=== PATIENT | male | born 1950 | race Caucasian/White ===

== ENCOUNTER → 2017-07-13 | Outpatient (CLI) | payer MEDICARE, BC ==
[~2017-07-13] MED LIST: ABILIFY10 MG PO; ACYCLOVIR 200200 MG PO; B12INJ PO; BENGAY GREASELE57 GM TOP; CLONAZEPAM 0.50.5 M1 PO; COUMADIN 3 MG TA3 M1 PO; CYMBALTA60 MG PO; DIFLUCAN150 MG PO; DILAUDID-H10 MG/1 M1 INJECTION; DOXYCYCLINE 10100 MG PO; ELIQUIS5 MG PO; FOLIC ACID 40400 MC1 PO; HYDROCODON-ACE1 EAC7 PO; HYDROCODONE-AP1 EA11 PO; IBUPROFEN 800800 M1 GT; LASIX 40 MG TAB40 M2 PO; LEVAQUIN 500 M500 MG PO; LEVETIRACETAM750 MG PO; LIPITOR 20 MG T20 M1 PO; LIPITOR40 MG PO; METHOCARBAMOL500 M1 PO; NITROGLYCERIN0.4 MG SUBLING; PERCOCET 10-321 EACH PO; PRAVACHOL40 MG PO; TOPROL XL25 MG PO; TRAZODONE 100100 MG PO; TRAZODONE HCL100 MG PO; TRILEPTAL150 MG; VITAMIN D3400 UNIT PO; VITAMIN E400 UNIT PO; ZINC30 MG PO; ZONEGRAN100 MG PO
[2017-07-13 09:39] LABS: ABSOLUTE BASOPHILS 0.1 thou/uL (0.0-0.2); ABSOLUTE EOSINOPHILS 0.3 thou/uL (0.0-0.7); ABSOLUTE LYMPHOCYTES 3.1 thou/uL (0.8-5.3); ABSOLUTE MONOCYTES 1.1 thou/uL (0.0-1.2); ABSOLUTE NEUTROPHILS 4.6 thou/uL (1.6-8.1); BASOPHILS 0.9 %; EOSINOPHILS 3.5 %; HEMATOCRIT 41.2 % (42.0-52.0); HEMOGLOBIN 13.9 gm/dL (14.0-18.0); LYMPHOCYTES 33.8 %; MCH 31.6 pg (26.0-34.0); MCHC 33.8 g/dL (28.0-37.0); MCV 93.4 fL (80.0-100.0); MPV 7.9 fl. (7.2-11.1); NUCLEATED RBCS 0 /100WBC; PLATELET COUNT* 229 thou/uL (150-400); POLYS 49.8 %; RBC 4.41 mil/uL (4.50-6.00); RDW-CV 12.7 % (10.5-14.5); WBC 9.2 thou/uL (4.0-11.0)
[2017-07-13 09:55] LABS: ALBUMIN 3.3 g/dL (3.4-5.0); CALCIUM 9.2 mg/dL (8.5-10.1); CREATININE 1.1 mg/dL (0.6-1.3); POTASSIUM 4.2 mmol/L (3.5-5.1); TOTAL BILIRUBIN 0.2 mg/dL (<0.1-1.0); TOTAL PROTEIN 7.2 g/dL (6.4-8.2)
== END ==
LOC: M.LAB 09:06
PROVIDERS: Internal Medicine Cardiovascular Disease
DX: Z51.81 Encounter for therapeutic drug level monitoring (principal); Z79.899 Other long term (current) drug therapy

== ENCOUNTER 2017-08-09 11:12 | Observation (INO) | payer MEDICARE, BC ==
[~2017-08-09] VITALS: Ht 180.3 cm; Wt 111.1 kg
[~2017-08-09 11:12] MED LIST changes: -BENGAY GREASELE57 GM TOP; -HYDROCODON-ACE1 EAC7 PO; -LASIX 40 MG TAB40 M2 PO; -LIPITOR40 MG PO; -VITAMIN D3400 UNIT PO; -ZINC30 MG PO
[2017-08-09 11:27] VITALS: BP 146/70
[2017-08-09] MEDS ORDERED: LASIX 40 MG TAB40 M2 PO (11:31)
[2017-08-09] MEDS ORDERED: VITAMIN D3400 UNIT PO (11:31)
[2017-08-09 11:34] LABS: ABSOLUTE BASOPHILS 0.1 thou/uL (0.0-0.2); ABSOLUTE EOSINOPHILS 0.2 thou/uL (0.0-0.7); ABSOLUTE LYMPHOCYTES 3.4 thou/uL (0.8-5.3); ABSOLUTE MONOCYTES 1.2 thou/uL (0.0-1.2); ABSOLUTE NEUTROPHILS 4.5 thou/uL (1.6-8.1); BASOPHILS 1.1 %; HEMATOCRIT 40.2 % (42.0-52.0); HEMOGLOBIN 13.1 gm/dL (14.0-18.0); LYMPHOCYTES 36.1 %; MCH 30.5 pg (26.0-34.0); MCHC 32.7 g/dL (28.0-37.0); MCV 93.5 fL (80.0-100.0); MONOCYTES 12.5 %; MPV 8.3 fl. (7.2-11.1); NUCLEATED RBCS 0 /100WBC; PLATELET COUNT* 278 thou/uL (150-400); POLYS 48.3 %; RDW-CV 12.9 % (10.5-14.5); WBC 9.4 thou/uL (4.0-11.0)
[2017-08-09 11:52] LABS: ANION GAP 7 mmol/L (7-16); BUN 21 mg/dL (7-18); CALCIUM 8.7 mg/dL (8.5-10.1); CHLORIDE 104 mmol/L (98-107); CO2 28 mmol/L (21-32); CREATININE 0.8 mg/dL (0.6-1.3); GLUCOSE 95 mg/dL (70-99); SODIUM 139 mmol/L (136-145)
[2017-08-09 12:03] LABS: ALBUMIN 3.5 g/dL (3.4-5.0); ALKALINE PHOSPHATASE 127 U/L (46-116); LIPASE 197 U/L (73-393); MAGNESIUM 2.2 mg/dL (1.8-2.4); NT-PRO BRAIN NAT PEPTIDE 66 pg/mL (<300); SGOT 33 U/L (15-37); SGPT 14 U/L (30-65); TOTAL BILIRUBIN 0.3 mg/dL (<0.1-1.0); TOTAL PROTEIN 7.7 g/dL (6.4-8.2); TROPONIN-I LEVEL <0.06 ng/mL (<0.06)
[2017-08-09 14:46] VITALS: BP 112/66
[2017-08-09 14:57] VITALS: BP 127/75
--- NOTE | 2017-08-09 15:10 | EKG ---
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: [facility] : 1950 Requested By: Kenneth Mathew Order Number: [id number] MD: Collin Mooney Measurements Intervals [place] Rate: 57 P: 23 UT: 206 QRS: -24 QRSD: 143 T: 29 QT: 458 QTc: 446 Interpretive Statements Sinus bradycardia Right bundle branch block Compared to ECG 11/06/2016 14:38:52 no change Electronically Signed On 08-09-2017 15:10:16 CDT by Collin Mooney [email or web address] <ELECTRONICALLY SIGNED> By: Collin Mooney MD, [facility] 08/09/17 1510 1116 111 Collin Mooney MD, [facility] /EPI
[2017-08-09 16:00] VITALS: BP 98/60
[2017-08-09 20:00] VITALS: BP 103/61
[2017-08-10] VITALS: BP 114/59
[2017-08-10 03:45] VITALS: BP 120/67
[2017-08-10 08:00] VITALS: BP 118/62
[2017-08-10 08:35] VITALS: BP 120/67
[2017-08-10] MEDS ORDERED: LIPITOR40 MG PO (11:36)
[2017-08-10 11:44] VITALS: BP 122/82
[2017-08-10] MEDS ORDERED: BENGAY GREASELE57 GM TOP (12:10)
[2017-08-10 12:12] VITALS: BP 120/67
--- NOTE | 2017-08-11 12:51 | CON ---
[address] [address] CONSULTATION Name: NINA MONTANO Room: [address] Brady Coffman#: [id number] Admission: 08/09/17 Attend Phys: Jacy Muñiz Discharge: 08/10/17 Date of : 52 Report #: [id number] THIS REPORT FOR: //name// CC: Willie Pemberton DATE OF SERVICE: 08/09/2017 HISTORY OF PRESENT ILLNESS: The patient is a 66-year-old white male who I was asked to see in the Emergency Room today after he complained of chest pain. The patient has a history of palpitations. He actually saw my partner, Dr. Jos Escalante and wore an event recorder back in August 2015. This showed episodes of atrial fibrillation. The patient was started on Eliquis for anticoagulation. He has had occasional chest pain in the past and had an abnormal nuclear stress test. Dr. Escalante performed a heart catheterization in October 2015 from the right radial artery. This showed no significant disease in the left main artery. There was a marginal branch of 30% stenosis. The distal LAD had a 60% apical stenosis. The diagonal branch had a 50% stenosis. The right coronary artery had a 50% stenosis in the posterior descending branch. Ejection fraction 55%. It was recommended that he be treated medically. He was actually seen by Dr. Escalante's nurse practitioner, Lani Henson on 07/30/2017. The patient was given Lasix for shortness of breath. He did have some orthostasis and was given midodrine. The patient did undergo a nuclear stress test last month in June. This showed a sinus rhythm. Stress test was performed with Lexiscan. Ejection fraction 68%. There were no perfusion defects. The patient stays fairly active. Yesterday, he had heaviness in his chest, lasted most of the day. He went to bed last night. When he awakened, he still felt the heaviness in his chest. There was no radiation of the pain; however, he has been short of breath, but denied any cough, fever or edema. The heaviness of chest did not radiate and was not related to food. He has had no bleeding. It seemed to be worse with activity. He denied any palpitations or syncope. He came to the Emergency Room and was admitted. PAST MEDICAL HISTORY: Significant for 5 back surgeries, elbow surgery, rotator cuff surgery, cholecystectomy, tonsillectomy. He has a history of keloid formation after surgical incisions. He has a history of hyperlipidemia. MEDICATIONS: Consists of Cymbalta for depression, Eliquis twice a day, Lasix for the edema and trazodone as needed. ALLERGIES: He has no known drug allergies. FAMILY HISTORY: [place] [address] CONSULTATION Name: NINA MONTANO Room: [address] [place] Coffman#: [id number] Admission: 08/09/17 Attend Phys: Jacy Muñiz Discharge: 08/10/17 Date of : 52 Report #: [id number] SOCIAL HISTORY: He is . He and his live in [place]. 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 REVIEW OF SYSTEMS: He has had no history of stroke. He did have a sleep study in the past consistent with sleep apnea. He has no history of asthma, peptic ulcer disease, liver disease, although he has had elevated liver function studies in the past and had liver biopsies negative at [facility]. No history of kidney disease or cancer. He has a history of depression, saw a psychiatrist. He has had ECT at [facility] in the past. He still sees a psychiatrist. PHYSICAL EXAMINATION: GENERAL: Revealed an elderly male who appeared in no distress. VITAL SIGNS: He had a blood pressure of 140/70, pulse is 60. He is afebrile. HEENT: He is anicteric, conjunctivae pink. Mucous membranes moist. NECK: Neck veins nondistended. No carotid bruits. Neck supple. CHEST: Clear to auscultation. CARDIOVASCULAR: Regular rate and rhythm without rub. ABDOMEN: Obese, soft, nontender. EXTREMITIES: Had no edema. Posterior pulse 3+ bilaterally. SKIN: Warm, dry. NEUROLOGIC: Nonfocal. RADIOLOGICAL DATA: His ECG showed sinus bradycardia. There was a right bundle branch block and compared to ECG in the past, there was no significant change. His additional workup included lab work that showed sodium 139, creatinine 0.8, glucose 95. Liver function studies were normal. Troponin 0.06. TSH 3.1 last month. His white blood cell count 9.4, hemoglobin 13.1. IMPRESSION AND RECOMMENDATIONS: 1. Chest tightness. Atypical for angina since it lasted all day long with no troponin rise. No EKG changes. Nuclear stress test last month showed no ischemia. I would not recommend cardiac catheterization nor repeat stress testing at this time. I suspect his chest tightness is noncardiac. 2. Left hand numbness. Suspect neuropathy. 3. Hyperlipidemia. The patient is not on a statin drug at this time. 4. History of depression. 5. History of atrial fibrillation. No clinical recurrences. The patient is [facility] [address] [place] [address] CONSULTATION Name: NINA MONTANO Room: [address] Brady Coffman#: [id number] Admission: 08/09/17 Attend Phys: Jacy Muñiz Discharge: 08/10/17 Date of : 52 Report #: [id number] anticoagulated with Eliquis. 6. History of keloid formation. <ELECTRONICALLY SIGNED> By: Collin Mooney MD, FACC 08/11/17 1251 1305 0021Dedu Mooney MD, FACC /nt
== END 2017-08-10 13:50 | disposition home or self-care (01) ==
LOC: M.ERS 11:12 → M.2W 13:47 → M.TBA-ER 13:47 → M.2W 14:55
PROVIDERS: Emergency Medicine Emergency Medical Services; ADMIT Internal Medicine
DX: I25.10 Atherosclerotic heart disease of native coronary artery without angina pectoris (principal); I48.0 Paroxysmal atrial fibrillation; M94.0 Chondrocostal junction syndrome [Tietze]; I10 Essential (primary) hypertension; E78.5 Hyperlipidemia, unspecified; F32.9 Major depressive disorder, single episode, unspecified; G47.30 Sleep apnea, unspecified; R20.0 Anesthesia of skin; Z98.890 Other specified postprocedural states; R42 Dizziness and giddiness

== ENCOUNTER 2017-09-16 04:52 | Observation (INO) | payer MEDICARE, BC ==
[~2017-09-16] VITALS: Ht 180.3 cm; Wt 111.1 kg
--- NOTE | ~2017-09-16 | PROC ---
[address] [address] PROCEDURE REPORT Name: NINA MONTANO Room: [address] IN .R.#: [id number] Admission: 09/16/17 Attend Phys: Cris Shukla MD Discharge: Date of : 52 Report #: [id number] THIS REPORT FOR: //name// For GI report, please see the Provation report in Perceptive 7 content. By: 0701Medical Records Staff DENISHA /ZORAIDA
[~2017-09-16 04:52] MED LIST changes: +BENGAY GREASELE57 GM TOP; +LASIX 40 MG TAB40 M2 PO; +LIPITOR40 MG PO; +VITAMIN D3400 UNIT PO
[2017-09-16 05:09] VITALS: BP 161/90
[2017-09-16 05:22] LABS: URINE BILIRUBIN NEGATIVE (Negative); URINE BLOOD NEGATIVE (Negative); URINE CLARITY CLEAR; URINE COLOR YELLOW; URINE GLUCOSE-RANDOM NEGATIVE (Negative); URINE KETONES NEGATIVE (Negative); URINE LEUKOCYTES-REFLEX NEGATIVE (Negative); URINE NITRITE-REFLEX NEGATIVE (Negative); URINE PROTEIN NEGATIVE (Negative); URINE SPECIFIC GRAVITY 1.015 (1.005-1.030); URINE UROBILINOGEN 0.2 E.U./dl (0.2-1.0)
[2017-09-16 05:26] LABS: ABSOLUTE BASOPHILS 0.1 thou/uL (0.0-0.2); ABSOLUTE EOSINOPHILS 0.3 thou/uL (0.0-0.7); ABSOLUTE LYMPHOCYTES 4.8 thou/uL (0.8-5.3); ABSOLUTE MONOCYTES 1.3 thou/uL (0.0-1.2); ABSOLUTE NEUTROPHILS 8.2 thou/uL (1.6-8.1); BASOPHILS 0.4 %; EOSINOPHILS 1.9 %; HEMATOCRIT 44.2 % (42.0-52.0); HEMOGLOBIN 14.4 gm/dL (14.0-18.0); LYMPHOCYTES 32.9 %; MCH 29.5 pg (26.0-34.0); MCHC 32.6 g/dL (28.0-37.0); MCV 90.5 fL (80.0-100.0); MONOCYTES 8.9 %; NUCLEATED RBCS 0 /100WBC; PLATELET COUNT* 272 thou/uL (150-400); POLYS 55.9 %; RBC 4.89 mil/uL (4.50-6.00); RDW-CV 13.1 % (10.5-14.5); WBC 14.7 thou/uL (4.0-11.0)
[2017-09-16 05:29] LABS: CALCIUM 9.5 mg/dL (8.5-10.1); POTASSIUM 4.1 mmol/L (3.5-5.1)
[2017-09-16 05:33] LABS: ALBUMIN 3.5 g/dL (3.4-5.0); TOTAL BILIRUBIN 0.2 mg/dL (<0.1-1.0)
[2017-09-16 09:00] VITALS: BP 136/82
[2017-09-16 09:18] VITALS: BP 153/75
[2017-09-16] MEDS ORDERED: ZINC30 MG PO (11:17)
[2017-09-16 15:36] VITALS: BP 153/75
[2017-09-16 23:35] VITALS: BP 111/70
[2017-09-17] MEDS ORDERED: HYDROCODON-ACE1 EAC7 PO (07:41)
[2017-09-17 08:12] VITALS: BP 109/68
[2017-09-17 16:01] VITALS: BP 109/68
[2017-09-17 16:42] VITALS: BP 109/68
--- NOTE | 2017-09-22 16:41 | CON ---
[address] [address] CONSULTATION Name: NINA MONTANO Room: [address] Brady Coffman#: [id number] Admission: 09/16/17 Attend Phys: Cris Shukla MD Discharge: 09/17/17 Date of : 52 Report #: [id number] THIS REPORT FOR: //name// CC: Cris Tapia DATE OF SERVICE: 09/16/2017 REASON FOR CONSULT: Abnormal CT and epigastric pain. HISTORY OF PRESENT ILLNESS: This is a 66-year-old male with history of chronic pain, who is on pain pump. He presented to hospital with epigastric pain. He also reports symptoms of nausea, vomiting and blood in the stool. The patient reports that he is usually constipated and due to his chronic back pain, he has anal sphincter dysfunction and therefore he has to digitally disimpact himself on daily basis. PAST MEDICAL HISTORY: Significant for history of chronic back pain status post back surgery, elbow and shoulder surgery, history of torn meniscus, gallbladder disease status post cholecystectomy, history of AFib, sleep apnea, insomnia, history of chronic pain receiving pain meds through a pump. ALLERGIES: No known drug allergy. MEDICATIONS: Please refer to hospital MAR. SOCIAL HISTORY: The patient is . Denies tobacco or alcohol use. He is on chronic pain meds with the pain pump. FAMILY HISTORY: Noncontributory. PHYSICAL EXAMINATION: VITAL SIGNS: Reveals blood pressure of 153/75, respirations 18, pulse 63, temperature 98.5. LUNGS: Clear. CARDIOVASCULAR: Regular rate, but irregular rhythm. ABDOMEN: Soft, tender to palpation in the epigastric region. Bowel sounds are positive. NEUROLOGIC: The patient is alert, oriented times 3. LABORATORY DATA: Reveal sodium of 138, potassium 4.1, BUN is 23, creatinine 1.0, glucose 109. Liver function tests are all within normal limits with mild elevation of alkaline phosphatase of 154. INR is 1.1. WBC is 14.7 with hemoglobin of 14.4 and platelet of 272. IMAGING: CT of abdomen and pelvis was obtained on admission. [place] [address] CONSULTATION Name: DUSTYNINA Room: [address] Brady Coffman#: [id number] Admission: 09/16/17 Attend Phys: Cris Shukla MD Discharge: 09/17/17 Date of : 52 Report #: [id number] significant for fluid distention of the stomach with mild fluid distention of the distal small bowel. ASSESSMENT AND PLAN: The patient with epigastric pain and fluid distention of the stomach and small bowel. This may be due to gastroparesis, in combination to severe constipation due to sphincter dysfunction. I will perform an upper endoscopy to rule out gastroduodenal ulcers versus gastric outlet obstruction and evaluate the patient for gastroesophageal reflux disease. If the upper scope is normal, we will consider a gastric emptying test. We will also help the patient with his chronic constipation. Looking at the records, I had performed the colonoscopy on him 9 years ago. We may consider colonoscopy at some point. <ELECTRONICALLY SIGNED> By: Javier Magallanes MD 09/22/17 1641 1626 1841Javier Magallanes MD /nt
--- NOTE | 2017-11-12 07:46 | PATH ---
[address] [address] PATHOLOGY RPT PROCEDURE Name: CHRIS MONTANO Room: [address] Brady Coffman#: [id number] Admission: 09/16/17 Date of : 52 Discharge: 09/17/17 Report #: [id number] Case #: [id number] [facility] Accession Number: [id number] . 01 Material submitted: . DUODENAL BIOPSY . 01 Clinical history: . None provided . 02 Diagnosis: Duodenal biopsy: - Nonspecific moderate active duodenitis, negative for granulomas and dysplasia. (MERE:[facility] 09/17/2017) QTP/09/17/2017 . 02 Electronically signed: . Derrek Garcia MD, Pathologist NPI- [id number] . 01 Gross description: . Received in formalin labeled "Chris Montaon duodenal BX," are 3 segments of mccain soft tissue measuring 0.8 x 0.5 x 0.3 cm in aggregate dimensions and ranging from 0.2 to 0.4 cm in maximum dimension. The specimen is submitted entirely in cassette A1. (TSD; 09/16/2017) TOB/TOB . 02 Pathologist provided ICD-10: K29.80 . 02 CPT . 873966 Specimen Comment: A courtesy copy of this report has been sent to Specimen Comment: [phone]. Specimen Comment: A duplicate report has been generated due to demographic updates. Performed at: [address], [place] [id number] MD Jaison Martinez MD Phone: [phone] Performed at: [address] [facility] [address], [place], [place] [id number] MD Derrek Garcia MD Phone: [phone]
== END 2017-09-17 16:46 | disposition home or self-care (01) ==
LOC: M.ERS 04:52 → M.ORTHSURG 08:16 → M.TBA-ER 08:16 → M.ORTHSURG 09:08
PROVIDERS: Emergency Medicine; ADMIT Internal Medicine
DX: K44.9 Diaphragmatic hernia without obstruction or gangrene (principal); K31.89 Other diseases of stomach and duodenum; K29.80 Duodenitis without bleeding; K31.84 Gastroparesis; K59.09 Other constipation; G89.29 Other chronic pain; M54.9 Dorsalgia, unspecified; I48.91 Unspecified atrial fibrillation; E78.5 Hyperlipidemia, unspecified; Z90.49 Acquired absence of other specified parts of digestive tract; Z98.890 Other specified postprocedural states

== ENCOUNTER → 2017-12-30 | Outpatient (CLI) | payer MEDICARE, BC ==
[~2017-12-30] MED LIST changes: +HYDROCODON-ACE1 EAC7 PO; +ZINC30 MG PO
[2017-12-30 10:55] LABS: ABSOLUTE BASOPHILS 0.1 thou/uL (0.0-0.2); ABSOLUTE EOSINOPHILS 0.3 thou/uL (0.0-0.7); ABSOLUTE LYMPHOCYTES 2.9 thou/uL (0.8-5.3); ABSOLUTE NEUTROPHILS 3.2 thou/uL (1.6-8.1); BASOPHILS 1.1 %; EOSINOPHILS 3.9 %; HEMATOCRIT 39.1 % (42.0-52.0); HEMOGLOBIN 12.8 gm/dL (14.0-18.0); LYMPHOCYTES 38.9 %; MCH 29.1 pg (26.0-34.0); MCHC 32.7 g/dL (28.0-37.0); MCV 89.2 fL (80.0-100.0); MONOCYTES 13.2 %; MPV 8.1 fl. (7.2-11.1); NUCLEATED RBCS 0 /100WBC; PLATELET COUNT* 241 thou/uL (150-400); POLYS 42.9 %; RBC 4.38 mil/uL (4.50-6.00); RDW-CV 14.8 % (10.5-14.5); WBC 7.5 thou/uL (4.0-11.0)
[2017-12-30 11:16] LABS: ALBUMIN 3.3 g/dL (3.4-5.0); ALKALINE PHOSPHATASE 140 U/L (46-116); ANION GAP 3 mmol/L (7-16); BUN 16 mg/dL (7-18); CALCIUM 8.6 mg/dL (8.5-10.1); CHLORIDE 105 mmol/L (98-107); CHOLESTEROL 202 mg/dL (<200); CO2 30 mmol/L (21-32); GLUCOSE 91 mg/dL (70-99); HDL CHOLESTEROL 41 mg/dL (>40); LDL CHOLESTEROL 136 mg/dL (<100); POTASSIUM 4.2 mmol/L (3.5-5.1); SGOT 27 U/L (15-37); SGPT 16 U/L (30-65); SODIUM 138 mmol/L (136-145); TC:HDL 4.9 Ratio (Not establshd); TOTAL BILIRUBIN 0.1 mg/dL (<0.1-1.0); TRIGLYCERIDE 129 mg/dL (<150); VLDL 26 mg/dL (<40)
[2017-12-30 11:22] LABS: SERUM ASSESSMENT Clear
== END ==
LOC: M.LAB 10:25
PROVIDERS: Nurse Practitioner Family
DX: Z13.220 Encounter for screening for lipoid disorders (principal); R06.02 Shortness of breath; R53.83 Other fatigue; E66.9 Obesity, unspecified

== ENCOUNTER → 2018-01-25 | Outpatient (CLI) | payer MEDICARE, BC ==
--- NOTE | 2018-01-25 15:08 | 2DMMODE ---
[place] [address] 2 D/M-MODE ECHOCARDIOGRAM Name: NINA MONTANO Room: [facility]#: [id number] Admission: 01/25/18 Attend Phys: IZABELLA Crooks Discharge: Date of : 52 Date of Service: 01/25/18 1507 Report #: [id number] THIS REPORT FOR: //name// APPROVED REPORT Study performed: 01/25/2018 13:50:20 EXAM: Comprehensive 2D, Doppler, and color-flow Echocardiogram Patient Location: Out-Patient Status: routine BSA: 2.38 HR: 70 bpm BP: 115/80 mmHg Other Information Study Quality: Good Indications Dyspnea 2D Dimensions IVSd: 12.32 (7-11mm) LVOT Diam: 20.72 (18-24mm) LVDd: 50.99 mm PWd: 11.33 (7-11mm) Ascending Ao: 26.90 (22-36mm) LVDs: 26.03 (25-40mm) Aortic Root: 31.90 mm Volumes Left Atrial Volume (Systole) LA ESV Index: 19.10 mL/m2 Aortic Valve AoV Peak Chang.: 1.45 m/s AO Peak Gr.: 8.46 mmHg LVOT Max P.51 mmHg AO Mean Gr.: 4.10 mmHg LVOT Mean P.97 mmHg LVOT Max V: 1.28 m/s AO V2 VTI: 29.19 cm LVOT Mean V: 0.79 m/s ANALISA (VTI): 3.12 cm2 LVOT V1 VTI: 27.01 cm Mitral Valve E/A Ratio: 1.01 MV Decel. Time: 248.63 ms MV E Max Chang.: 0.78 m/s MV PHT: 72.10 [place] [address] 2 D/M-MODE ECHOCARDIOGRAM Name: NINA MONTANO Room: [facility]#: [id number] Admission: 01/25/18 Attend Phys: IZABELLA Crooks Discharge: Date of : 52 Date of Service: 01/25/18 1507 Report #: [id number] MVA (PHT): 3.05 cm2 TDI E/Lateral E': 6.00 E/Medial E': 8.67 Medial E' Chang.: 0.09 m/s Lateral E' Chang.: 0.13 m/s Pulmonary Valve PV Peak Chang.: 1.20 m/s PV Peak Gr.: 5.77 mmHg Tricuspid Valve RAP Estimate: 5.00 mmHg TR Peak Gr.: 25.60 mmHg RVSP: 30.60 mmHg PA Pressure: 30.60 mmHg Left Ventricle The left ventricle is normal size. There is normal LV segmental wall motion. There is normal left ventricular wall thickness. Left ventricular systolic function is normal. LVEF is 55-60%. Transmitral Doppler flow pattern suggests impaired LV relaxation. Right Ventricle The right ventricle is normal size. The right ventricular systolic function is normal. Atria The left atrium size is normal. The right atrium size is normal. Aortic Valve The Aortic valve is sclerotic. No aortic regurgitation is present. There is no aortic valvular stenosis. Mitral Valve The mitral valve is normal in structure. Mild mitral regurgitation. No evidence of mitral valve stenosis. Tricuspid Valve The tricuspid valve is normal in structure. Mild tricuspid regurgitation. No pulmonary hypertension. Pulmonic Valve The pulmonary valve is normal in structure. There is no pulmonic valvular regurgitation[place] [address] 2 D/M-MODE ECHOCARDIOGRAM Name: NINA MONTANO Room: [facility]#: [id number] Admission: 01/25/18 Attend Phys: IZABELLA Crooks Discharge: Date of : 52 Date of Service: 01/25/18 1507 Report #: [id number] The aortic root is normal in size. IVC is normal in size and collapses >50% with inspiration. Pericardium There is no pericardial effusion. <Conclusion> The left ventricle is normal size. There is normal left ventricular wall thickness. Left ventricular systolic function is normal. LVEF is 55-60%. Transmitral Doppler flow pattern suggests impaired LV relaxation. The Aortic valve is sclerotic. There is no aortic valvular stenosis. Mild mitral regurgitation. Mild tricuspid regurgitation. No pulmonary hypertension. IVC is normal in size and collapses >50% with inspiration. <ELECTRONICALLY SIGNED> By: Luis Diaz MD, FACC 01/25/18 1507 150 150 Luis Diaz MD, FACC /INF
== END ==
LOC: M.CRD 13:44
DX: I08.1 Rheumatic disorders of both mitral and tricuspid valves (principal); R06.02 Shortness of breath

== ENCOUNTER 2018-04-08 06:10 | Inpatient (IN) | payer MEDICARE, BC ==
[~2018-04-08] VITALS: Ht 180.3 cm; Wt 121.4 kg
[~2018-04-08 06:10] MED LIST changes: -FOLIC ACID 40400 MC1 PO; +FOLIC ACID0.4 MG PO
[2018-04-08 06:17] VITALS: BP 146/85
[2018-04-08] MEDS ORDERED: LIPITOR 20 MG T20 M1 PO (06:28)
[2018-04-08] MEDS ORDERED: POTASSIUM20 PO (06:30)
[2018-04-08 06:49] LABS: ABSOLUTE BASOPHILS 0.1 thou/uL (0.0-0.2); ABSOLUTE EOSINOPHILS 0.3 thou/uL (0.0-0.7); ABSOLUTE LYMPHOCYTES 3.4 thou/uL (0.8-5.3); ABSOLUTE MONOCYTES 0.9 thou/uL (0.0-1.2); ABSOLUTE NEUTROPHILS 4.9 thou/uL (1.6-8.1); BASOPHILS 0.6 %; EOSINOPHILS 2.8 %; HEMATOCRIT 41.6 % (42.0-52.0); HEMOGLOBIN 13.6 gm/dL (14.0-18.0); LYMPHOCYTES 35.6 %; MCH 29.1 pg (26.0-34.0); MCHC 32.6 g/dL (28.0-37.0); MCV 89.3 fL (80.0-100.0); MONOCYTES 9.4 %; MPV 9.3 fl. (7.2-11.1); NUCLEATED RBCS 0 /100WBC; PLATELET COUNT* 246 thou/uL (150-400); POLYS 51.6 %; RBC 4.66 mil/uL (4.50-6.00); RDW-CV 14.6 % (10.5-14.5); WBC 9.4 thou/uL (4.0-11.0)
[2018-04-08 06:58] LABS: ANION GAP 9 mmol/L (7-16); BUN 14 mg/dL (7-18); CALCIUM 9.2 mg/dL (8.5-10.1); CHLORIDE 103 mmol/L (98-107); CO2 27 mmol/L (21-32); GLUCOSE 132 mg/dL (70-99); POTASSIUM 3.7 mmol/L (3.5-5.1); SODIUM 139 mmol/L (136-145)
[2018-04-08 07:09] LABS: ALBUMIN 3.3 g/dL (3.4-5.0); ALKALINE PHOSPHATASE 111 U/L (46-116); LIPASE 118 U/L (73-393); NT-PRO BRAIN NAT PEPTIDE 115 pg/mL (<300); SGOT 23 U/L (15-37); SGPT 16 U/L (30-65); TOTAL BILIRUBIN 0.3 mg/dL (<0.1-1.0); TOTAL PROTEIN 7.2 g/dL (6.4-8.2); TROPONIN-I LEVEL <0.06 ng/mL (<0.06)
[2018-04-08 07:41] LABS: BE -0.4 mmol/L (-2 to +3); PCO2 38.1 mmHg (35.0-45.0); PO2 71.9 mmHg (75.0-100.0); pH 7.415 (7.340-7.450)
[2018-04-08 08:31] LABS: URINE BILIRUBIN NEGATIVE (Negative); URINE BLOOD NEGATIVE (Negative); URINE CLARITY CLEAR; URINE COLOR YELLOW; URINE GLUCOSE-RANDOM NEGATIVE (Negative); URINE KETONES NEGATIVE (Negative); URINE LEUKOCYTES-REFLEX NEGATIVE (Negative); URINE NITRITE-REFLEX NEGATIVE (Negative); URINE PROTEIN NEGATIVE (Negative); URINE UROBILINOGEN 0.2 E.U./dl (0.2-1.0)
--- NOTE | 2018-04-08 08:41 | EKG ---
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 : 1950 Requested By: Kenneth Mathew Order Number: [id number] MD: Collin Mooney Measurements Intervals [place] Rate: 67 P: 14 IA: 213 QRS: -25 QRSD: 150 T: 16 QT: 440 QTc: 465 Interpretive Statements Sinus rhythm Borderline prolonged IA interval Right bundle branch block Compared to ECG 08/09/2017 11:16:57 Sinus bradycardia no longer present Electronically Signed On 04-08-2018 8:41:08 JAVA SOFTWARE ARCHITECT by Collin Mooney [email or web address] <ELECTRONICALLY SIGNED> By: Collin Mooney MD, [facility] 04/08/18 0841 7 Collin Mooney MD, FACC /EPI
[2018-04-08 09:37] LABS: PROTIME 10.7 Seconds (9.20-11.50)
[2018-04-08 11:00] VITALS: BP 142/78
--- NOTE | 2018-04-08 11:00 | NUR ---
er admit to rm 222 report given at bedside patient settled in rm and priented to call casey mansfield in r ribs, refused pain medication at this time
[2018-04-08 11:01] VITALS: BP 142/84
[2018-04-08 12:33] VITALS: BP 119/53
--- NOTE | 2018-04-08 13:19 | 2DMMODE ---
[place] [address] 2 D/M-MODE ECHOCARDIOGRAM Name: NINA MONTANO Room: [address] [facility]#: [id number] Admission: 04/08/18 Attend Phys: Seb Godwin Discharge: Date of : 52 Date of Service: 04/08/18 1318 Report #: [id number] THIS REPORT FOR: //name// APPROVED REPORT Study performed: 04/08/2018 11:32:09 EXAM: Comprehensive 2D, Doppler, and color-flow Echocardiogram Patient Location: In-Patient Room #: [facility] [place][note 2] Status: routine BSA: 2.32 HR: 63 bpm BP: 142/84 mmHg Rhythm: NSR Other Information Study Quality: Good Technically limited study due to body habitus, poor endocardial definition. Indications Chest Pain Echo Enhancing Agent Indication: Endocardial border delineation Agent(s) / Amount(s) Used: Optison 3 cc 2D Dimensions IVSd: 11.40 (7-11mm) LVOT Diam: 21.15 (18-24mm) LVDd: 47.08 mm PWd: 9.94 (7-11mm) Ascending Ao: 32.20 (22-36mm) LVDs: 27.28 (25-40mm) Aortic Root: 34.15 mm Volumes Left Atrial Volume (Systole) LA ESV Index: 32.30 mL/m2 Aortic Valve AoV Peak Chang.: 1.55 m/s AO Peak Gr.: 9.64 mmHg LVOT Max P.69 mmHg AO Mean Gr.: 5.02 mmHg LVOT Mean P.20 mmHg LVOT Max V: 1.47 m/s AO V2 VTI: 32.17 cm LVOT Mean V: 0.94 m/[place] [address] 2 D/M-MODE ECHOCARDIOGRAM Name: NINA MONTANO Room: [address] IN ..#: [id number] Admission: 04/08/18 Attend Phys: Seb Godwin Discharge: Date of : 52 Date of Service: 04/08/18 1318 Report #: [id number] ANALISA (VTI): 3.43 cm2 LVOT V1 VTI: 31.37 cm Mitral Valve E/A Ratio: 1.33 MV Decel. Time: 198.91 ms MV E Max Chang.: 0.99 m/s MV PHT: 57.68 ms MVA (PHT): 3.81 cm2 TDI E/Lateral E': 5.82 E/Medial E': 9.00 Medial E' Chang.: 0.11 m/s Lateral E' Chang.: 0.17 m/s Pulmonary Valve PV Peak Chang.: 1.31 m/s PV Peak Gr.: 6.87 mmHg Tricuspid Valve RAP Estimate: 5.00 mmHg TR Peak Gr.: 23.43 mmHg RVSP: 28.00 mmHg PA Pressure: 28.00 mmHg Left Ventricle The left ventricle is normal size. There is normal LV segmental wall motion. There is normal left ventricular wall thickness. Left ventricular systolic function is normal. The left ventricular ejection fraction is within the normal range. LVEF is 60-65%. The left ventricular diastolic function is normal. Right Ventricle The right ventricle is normal size. The right ventricular systolic function is normal. Atria The left atrium size is normal. The right atrium size is normal. Aortic Valve The aortic valve is normal in structure. No aortic regurgitation is present. There is no aortic valvular stenosis. Mitral Valve The mitral valve is normal in structure. Mild mitral regurgitation. No evidence of mitral valve stenosis[place] [address] 2 D/M-MODE ECHOCARDIOGRAM Name: NINA MONTANO Room: [address]#: [id number] Admission: 04/08/18 Attend Phys: Seb Godwin Discharge: Date of : 52 Date of Service: 04/08/18 1318 Report #: [id number] The tricuspid valve is normal in structure. Trace tricuspid regurgitation. No pulmonary hypertension. Pulmonic Valve The pulmonary valve is normal in structure. There is no pulmonic valvular regurgitation. Great Vessels The aortic root is normal in size. IVC is not well visualized. Pericardium There is no pericardial effusion. <Conclusion> LVEF is 60-65%. There is normal LV segmental wall motion. There is no aortic valvular stenosis. No aortic regurgitation is present. Mild mitral regurgitation. Trace tricuspid regurgitation. No pulmonary hypertension. <ELECTRONICALLY SIGNED> By: Jos Escalante MD, FACC 04/08/18 1318 1318 Jos Escalante MD, FACC /INF
[2018-04-08 17:06] VITALS: BP 120/61
[2018-04-09] VITALS (7 sets, daily range): BP systolic 96–138; BP diastolic 49–75
[2018-04-09 02:19] LABS: AMP/METHAMP Negative (Negative); BARBITURATES Negative (Negative); BENZODIAZEPINES Negative (Negative); COCAINE Negative (Negative); METHADONE Negative (Negative); OPIATES Negative (Negative); PCP Negative (Negative); THC Negative (Negative)
[2018-04-09 04:52] LABS: HEMOGLOBIN 12.2 gm/dL (14.0-18.0); MCH 29.5 pg (26.0-34.0); MCHC 32.9 g/dL (28.0-37.0); MCV 89.7 fL (80.0-100.0); MPV 9.2 fl. (7.2-11.1); RBC 4.13 mil/uL (4.50-6.00); RDW-CV 14.3 % (10.5-14.5); WBC 8.8 thou/uL (4.0-11.0)
[2018-04-09 05:18] LABS: CALCIUM 8.6 mg/dL (8.5-10.1); CREATININE 0.9 mg/dL (0.6-1.3); MAGNESIUM 2.1 mg/dL (1.8-2.4); POTASSIUM 3.7 mmol/L (3.5-5.1)
--- NOTE | 2018-04-09 05:35 | NUR ---
RECEIVED REPORT AND ASSUMED CARE AT 1900. VSS. CARDIAC MONITORING IN PLACE. PT REPORTED PAIN IN L RIB. PHYSICIAN NOTIFIED, ORDERS RECEIVED. ASSESSMENT COMPLETED CHARTED. PT UP AD JOHNNIE IN ROOM, ON 2L NC. BED LOCKED IN LOWEST POSITION. CALL LIGHT WITHIN REACH. HOURLY ROUNDING COMPLETED AND ALL NEEDS MET. NURSING WILL CONTINUE TO MONITOR
--- NOTE | 2018-04-09 12:09 | NUR ---
PT ALERT AND ORIENTED. TELE TRACKING NSR AND ALL VSS ON 2L. PT DENIES CARDIAC PAIN, DOES C/O RIB PAIN R/T FREQUENT COUGH AND SOME MYERS. EDUCATED ON SAFETY AND PLAN OF CARE. PLEASE SEE ASSESSMENT FOR ADDITIONAL INFORMATION. WILL CONTINUE TO MONITOR
[2018-04-10 01:07] VITALS: BP 134/61
--- NOTE | 2018-04-10 02:44 | NUR ---
RECEIVED REPORT AND ASSUMED CARE AT 1900. VSS. CARDIAC MONITORING IN PLACE. ASSESSMENT COMPLETED CHARTED. DISCUSSED PLAN OF CARE WITH PT, VERBALIZED UNDERSTANDING. PT UP AD JOHNNIE IN ROOM, ON RA. BED LOCKED IN LOWEST POSITION, CALL LIGHT WITHIN REACH. MEDICATION ADMIN PER EMAR. WILL CONTINUE TO MONITOR
[2018-04-10 05:08] VITALS: BP 115/61
[2018-04-10 07:52] VITALS: BP 138/66
--- NOTE | 2018-04-10 09:24 | NUR ---
PT ALERT AND ORIENTED. TELE TRACKING NSR WITH 1ST DEGREE AVB AND ALL VSS ON ROOM AIR. PT DENIES CP, HAS MYERS. C/O RIB PAIN- PT NOT WANTING TO TAKE ADDITIONAL PAIN MEDS AT THIS TIME. PT LOOKING FORWARD TO DISCHARGE. EDUCATED ON SAFETY AND PLAN OF CARE. PLEASE SEE ASSESSMENT FOR ADDITIONAL INFORMATION. WILL CONTINUE TO MONITOR
[2018-04-10 11:37] VITALS: BP 144/70
[2018-04-10] MEDS ORDERED: AZITHROMYCIN 2250 MG PO (12:49)
[2018-04-10] MEDS ORDERED: CEFDINIR300 MG PO (12:50)
[2018-04-10] MEDS ORDERED: LIDOCAINE HCL 210 M1 TOP (12:56)
[2018-04-10] MEDS ORDERED: DESITIN57 GM TOP (12:57)
[2018-04-10] MEDS ORDERED: NYSTATIN15 G3 TOP (12:59)
--- NOTE | 2018-04-19 10:08 | CON ---
[address] [address] CONSULTATION Name: NINA MONTANO Room: [address]#: [id number] Admission: 04/08/18 Attend Phys: Seb Carrasco, Discharge: 04/10/18 Date of : 52 Report #: [id number] THIS REPORT FOR: //name// CC: Danielle Carrasco DATE OF SERVICE: 04/08/2018 INPATIENT CONSULTATION PRIMARY CARE PHYSICIAN: Danielle Ramírez DO. CHIEF COMPLAINT: Chest pain, shortness of breath and cough. HISTORY OF PRESENT ILLNESS: The patient is a 67-year-old man I follow in the office for paroxysmal atrial fibrillation. He has been dealing with an upper respiratory syndrome over the last 2 weeks. He tested positive for flu and was treated with antiviral therapy, but his symptoms progressed. He is now complaining of chronic left-sided chest pain worsened with deep inspiration and palpation. It does not worsen with physical activity. He has been more short of breath lately and tired. He has a history of known paroxysmal atrial fibrillation. Denies symptoms of palpitations or heart racing. He presents in a sinus rhythm with a right bundle branch block. He denies orthopnea or PND. He has not been gaining weight. He is anticoagulated and denies GI or bleeding. He has no other symptoms of numbness, weakness or visual changes. PAST MEDICAL HISTORY: He has a history of paroxysmal atrial fibrillation. He had a nuclear stress test in 2018, which was normal and had normal LV function. He has morbid obesity and hyperlipidemia. MEDICATIONS: His home medications include atorvastatin 20 mg daily, potassium chloride 20 mEq daily, 1 mg daily, trazodone 100 mg at bedtime, apixaban 5 mg p.o. b.i.d., Lasix 40 mg daily and zinc. FAMILY HISTORY: Positive for obesity. ALLERGIES: He has [place] [address] CONSULTATION Name: NINA MONTANO Room: [address]#: [id number] Admission: 04/08/18 Attend Phys: Seb Carrasco, Discharge: 04/10/18 Date of : 52 Report #: [id number] REVIEW OF SYSTEMS: GENERAL: Positive fevers, positive chills and weakness. RESPIRATORY: Positive shortness of breath, positive cough. CARDIOVASCULAR: Positive chest pain, positive dyspnea with activity. NEUROLOGIC: Denies seizures, headaches or blurry vision. ENDOCRINE: Denies any diabetes. Positive hyperlipidemia. RENAL: No history of kidney failure. PHYSICAL EXAMINATION: VITAL SIGNS: On presentation, blood pressure 146/85, sinus rhythm at 73, respiratory rate 20 and O2 sat 95%. Weight is 261 pounds. GENERAL: This is an obese, middle-aged male. He is alert and oriented, in no apparent distress. HEENT: Eyes, EOMs are intact. No facial asymmetry. NECK: Supple. No jugular venous distention. CARDIOVASCULAR EXAMINATION: Regular. I cannot hear a murmur or S3. LUNGS: Clear to auscultation. ABDOMEN: Soft, nontender and nondistended. EXTREMITIES: No peripheral edema. LABORATORY DATA: Electrocardiogram shows sinus rhythm, right bundle branch block and normal ST segments. Hemoglobin is 13.6, white blood count is 9.4. Troponin I is 0.06 x 2 sets. Creatinine is 1.0. Sodium is 139, potassium 3.7. INR is 1.0. Chest x-ray shows no congestive heart failure. IMPRESSION AND PLAN: 1. Chest pain. His symptoms are atypical and seemingly are more pleuritic, based on his upper respiratory infection recently and his symptoms are worsening with deep inspiration. He had a low-risk nuclear stress test less than 12 months ago. I would like to treat him with NSAIDs for pleurisy. 2. Paroxysmal atrial fibrillation. We will continue with current medical therapy. He is maintaining a sinus rhythm. 3. Right bundle branch block abnormality. We will continue with heart rate monitoring. 4. Hyperlipidemia. We will continue with a statin. <ELECTRONICALLY SIGNED> By: Jos Escalante MD, FACC 04/19/18 1008 1230 [id number] Escalante MD, FACC /nt
== END 2018-04-10 14:00 | disposition home or self-care (01) | DRG 193 ==
LOC: M.ERS 06:10 → M.TBA-ER 09:29 → M.2W 09:29
PROVIDERS: Emergency Medicine Emergency Medical Services; Internal Medicine; Personal Emergency Response Attendant; ADMIT Family Medicine
DX: J18.9 Pneumonia, unspecified organism (principal); J96.01 Acute respiratory failure with hypoxia; J98.11 Atelectasis; I50.30 Unspecified diastolic (congestive) heart failure; E78.5 Hyperlipidemia, unspecified; K59.09 Other constipation; F32.9 Major depressive disorder, single episode, unspecified; I48.0 Paroxysmal atrial fibrillation; E66.01 Morbid (severe) obesity due to excess calories; I45.10 Unspecified right bundle-branch block; G89.29 Other chronic pain; M54.9 Dorsalgia, unspecified; Z68.37 Body mass index [BMI] 37.0-37.9, adult; Z83.49 Family history of other endocrine, nutritional and metabolic diseases; Z90.49 Acquired absence of other specified parts of digestive tract; Z82.49 Family history of ischemic heart disease and other diseases of the circulatory system; Z79.899 Other long term (current) drug therapy

== ENCOUNTER → 2018-08-22 | Outpatient (CLI) | payer MEDICARE, BC ==
[~2018-08-22] MED LIST changes: +AZITHROMYCIN 2250 MG PO; +CEFDINIR300 MG PO; +DESITIN57 GM TOP; +LIDOCAINE HCL 210 M1 TOP; +NYSTATIN15 G3 TOP; +POTASSIUM20 PO
--- NOTE | 2018-08-24 07:50 | PF ---
[place] [address] PULMONARY FUNCTION REPORT Name: NINA MONTANO Room: [facility]#: [id number] Admission: 08/22/18 Attend Phys: Jos Escalante MD Discharge: Date of : 52 Report #: [id number] THIS REPORT FOR: //name// CC: Danielle Escalante REFERRING PHYSICIANS: Danielle Ramírez DO/Jos Escalante MD [facility] TYPE OF TEST: Full pulmonary function test. SPIROMETRY: The FEV1/FVC ratio was 81% predicted. The FEV1 was 3.15 liters, at 90% predicted. Post bronchodilators, the FVC was 3.81 at 8 liters at 81% predicted. The FEF 25-75% was 138% predicted. Total lung capacity was 5.29 liters at 72% predicted. DLCO was 91% predicted. IMPRESSION: This complete pulmonary function test did not show any evidence of obstructive or restrictive pulmonary defect. <ELECTRONICALLY SIGNED> By: Abigail Coronel MD 08/24/18 0750 1159 0008Sarai Lauren MD /nt
== END ==
LOC: M.PUL 15:35
DX: R07.1 Chest pain on breathing (principal)

== ENCOUNTER 2018-11-12 16:21 | Emergency (ER) | payer MEDICARE, BC ==
[~2018-11-12] VITALS: Ht 180.3 cm; Wt 113.4 kg
[2018-11-12] MEDS ORDERED: PREDNISONE 10 M10 MG PO (16:43)
[2018-11-12] MEDS ORDERED: MAXITROL EYE DRO5 ML OPHTHALMIC (16:43)
[2018-11-12 16:52] VITALS: BP 136/80
== END 2018-11-12 16:54 | disposition home or self-care (01) ==
LOC: M.ERS 16:21
DX: L23.7 Allergic contact dermatitis due to plants, except food (principal); H10.9 Unspecified conjunctivitis; I48.91 Unspecified atrial fibrillation; E78.5 Hyperlipidemia, unspecified; F32.9 Major depressive disorder, single episode, unspecified; G47.30 Sleep apnea, unspecified; Z90.49 Acquired absence of other specified parts of digestive tract

== ENCOUNTER 2020-01-10 12:37 | Emergency (ER) | payer MEDICARE, BC ==
[~2020-01-10] VITALS: Ht 180.3 cm; Wt 113.4 kg
[~2020-01-10 12:37] MED LIST changes: +MAXITROL EYE DRO5 ML OPHTHALMIC; +PREDNISONE 10 M10 MG PO
[2020-01-10 13:06] LABS: ABSOLUTE BASOPHILS 0.1 thou/uL (0.0-0.2); ABSOLUTE EOSINOPHILS 0.4 thou/uL (0.0-0.7); ABSOLUTE LYMPHOCYTES 2.7 thou/uL (0.8-5.3); ABSOLUTE NEUTROPHILS 5.7 thou/uL (1.6-8.1); BASOPHILS 0.9 %; EOSINOPHILS 3.7 %; HEMATOCRIT 38.7 % (42.0-52.0); HEMOGLOBIN 12.8 gm/dL (14.0-18.0); LYMPHOCYTES 27.2 %; MCH 29.8 pg (26.0-34.0); MCV 90.4 fL (80.0-100.0); MONOCYTES 10.7 %; MPV 7.3 fl. (7.2-11.1); NUCLEATED RBCS 0 /100WBC; PLATELET COUNT* 266 thou/uL (150-400); POLYS 57.5 %; RBC 4.28 mil/uL (4.50-6.00); RDW-CV 13.2 % (10.5-14.5); WBC 9.8 thou/uL (4.0-11.0)
[2020-01-10 13:18] LABS: APTT 25.1 Seconds (25.0-31.3); CALCIUM 8.5 mg/dL (8.5-10.1); POTASSIUM 4.1 mmol/L (3.5-5.1); PROTIME 10.3 Seconds (9.20-11.50)
[2020-01-10 13:32] LABS: CK-MB MASS 1.6 ng/mL (<0.5-3.6); MAGNESIUM 2.1 mg/dL (1.8-2.4); TOTAL BILIRUBIN 0.2 mg/dL (<0.1-1.0); TOTAL PROTEIN 7.4 g/dL (6.4-8.2)
[2020-01-10] MEDS ORDERED: POTASSIUM20 PO (15:26)
[2020-01-10] MEDS ORDERED: LASIX 40 MG TAB40 MG PO (15:26)
[2020-01-10 15:36] VITALS: BP 129/65
--- NOTE | 2020-01-11 16:24 | EKG ---
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: [facility] : 1950 Requested By: Luciano De Santiago Order Number: [id number] MD: Willie Miner Measurements Intervals [place] Rate: 72 P: 38 [place]: 208 QRS: -15 QRSD: 145 T: 45 QT: 419 QTc: 459 Interpretive Statements Sinus rhythm Right bundle branch block Compared to ECG 04/08/2018 06:38:14 No significant changes Electronically Signed On 01-11-2020 16:24:02 [employer] by Willie Miner [email or web address] <ELECTRONICALLY SIGNED> By: Willie Miner MD, FAC 01/11/20 1624 1246 1246 Willie Miner MD, [facility] /EPI
== END 2020-01-10 15:37 | disposition home or self-care (01) ==
LOC: M.ERS 12:37
PROVIDERS: Family Medicine
DX: R06.00 Dyspnea, unspecified (principal); Z20.828 Contact with and (suspected) exposure to other viral communicable diseases; E78.5 Hyperlipidemia, unspecified; I48.91 Unspecified atrial fibrillation; Z88.8 Allergy status to other drugs, medicaments and biological substances; G47.30 Sleep apnea, unspecified

== ENCOUNTER 2020-09-07 20:14 | Emergency (ER) | payer MEDICARE ==
[~2020-09-07] VITALS: Ht 180.3 cm; Wt 102.1 kg
[~2020-09-07 20:14] MED LIST changes: +LASIX 40 MG TAB40 MG PO
[2020-09-07 21:55] LABS: ABSOLUTE BASOPHILS 0.1 thou/uL (0.0-0.2); ABSOLUTE EOSINOPHILS 0.1 thou/uL (0.0-0.7); ABSOLUTE LYMPHOCYTES 2.3 thou/uL (0.8-5.3); ABSOLUTE MONOCYTES 0.9 thou/uL (0.0-1.2); ABSOLUTE NEUTROPHILS 7.1 thou/uL (1.6-8.1); BASOPHILS 0.9 %; EOSINOPHILS 0.8 %; HEMATOCRIT 40.1 % (42.0-52.0); HEMOGLOBIN 13.5 gm/dL (14.0-18.0); LYMPHOCYTES 22.2 %; MCH 29.7 pg (26.0-34.0); MCHC 33.7 g/dL (28.0-37.0); MCV 88.1 fL (80.0-100.0); MPV 8.1 fl. (7.2-11.1); NUCLEATED RBCS 0 /100WBC; PLATELET COUNT* 270 thou/uL (150-400); POLYS 67.1 %; RBC 4.55 mil/uL (4.50-6.00); RDW-CV 14.2 % (10.5-14.5); WBC 10.5 thou/uL (4.0-11.0)
[2020-09-07 22:02] LABS: CALCIUM 9.1 mg/dL (8.5-10.1); CREATININE 0.8 mg/dL (0.6-1.3); POTASSIUM 4.5 mmol/L (3.5-5.1)
[2020-09-07 22:06] LABS: ALBUMIN 3.6 g/dL (3.4-5.0); TOTAL BILIRUBIN 0.2 mg/dL (<0.1-1.0); TOTAL PROTEIN 7.9 g/dL (6.4-8.2)
[2020-09-08 00:04] LABS: URINE BILIRUBIN NEGATIVE (Negative); URINE BLOOD NEGATIVE (Negative); URINE CLARITY TURBID; URINE COLOR YELLOW; URINE GLUCOSE-RANDOM NEGATIVE (Negative); URINE KETONES NEGATIVE (Negative); URINE LEUKOCYTES-REFLEX NEGATIVE (Negative); URINE NITRITE-REFLEX NEGATIVE (Negative); URINE PROTEIN NEGATIVE (Negative); URINE SPECIFIC GRAVITY 1.015 (1.005-1.030); URINE UROBILINOGEN 0.2 E.U./dl (0.2-1.0)
[2020-09-08] MEDS ORDERED: NEURONTIN 300M300 M2 PO (00:22)
[2020-09-08] MEDS ORDERED: TYLENOL325 M1 PO (00:22)
[2020-09-08] MEDS ORDERED: NUVIGIL150 MG PO (00:22)
[2020-09-08] MEDS ORDERED: LISINOPRIL10 MG PO (00:23)
[2020-09-08] MEDS ORDERED: OMEPRAZOLE 20 M20 M1 PO (00:23)
[2020-09-08] MEDS ORDERED: LIPITOR 20 MG T20 M1 PO (00:23)
[2020-09-08] MEDS ORDERED: ELIQUIS5 MG PO (00:24)
[2020-09-08] MEDS ORDERED: FUROSEMIDE 20 M20 MG PO (00:24)
[2020-09-08] MEDS ORDERED: DULOXETINE HCL30 MG PO (00:24)
[2020-09-08] MEDS ORDERED: ZONEGRAN100 MG PO (00:25)
[2020-09-08] MEDS ORDERED: TRAZODONE HCL100 MG PO (00:25)
[2020-09-08 01:18] VITALS: BP 146/71
--- NOTE | 2020-09-09 14:35 | EKG ---
[place] [address] ELECTROCARDIOGRAM REPORT Name: NINA MONTANO Room: [facility]#: [id number] Admission: 09/07/20 Attend Phys: Discharge: 09/08/20 Date of : 52 Date of Service: 09/07/202114 Report #: [id number] THIS REPORT FOR: //name// [facility] ED Test Date: 2020-09-07 Test Time: 21:15:55 Pat Name: NINA MONTANO Department: Room: Gender: [employer] Cr[employer] Operator: TORI : 1950 Requested By: Thi Green Order Number: [id number] Matthew MD: Willie Miner Measurements Intervals [place] Rate: 64 P: 17 MN: 199 QRS: -34 QRSD: 144 T: 27 QT: 458 QTc: 473 Interpretive Statements Sinus rhythm Right bundle branch block Compared to ECG 01/10/2020 12:46:18 No significant changes Electronically Signed On 09-09-2020 14:35:34 CDT by Willie Miner [email or web address] <ELECTRONICALLY SIGNED> By: Willie Miner MD, [facility] 09/09/20 1435 14 14 Willie Miner MD, [facility] /EPI
== END 2020-09-08 01:20 | disposition home or self-care (01) ==
LOC: M.ERS 20:14
PROVIDERS: Personal Emergency Response Attendant
DX: R50.9 Fever, unspecified (principal); I48.91 Unspecified atrial fibrillation; Z79.899 Other long term (current) drug therapy; Z88.8 Allergy status to other drugs, medicaments and biological substances; Z98.890 Other specified postprocedural states; Z90.49 Acquired absence of other specified parts of digestive tract